=== PATIENT | female | born 1970 | race Caucasian/White ===

== ENCOUNTER 2023-03-12 19:16 | Inpatient (IN) | payer OTHER ==
[~2023-03-12] VITALS: Ht 152.4 cm; Wt 117.9 kg
[~2023-03-12 19:16] MED LIST: ARMOUR THYROID60 MG; [UNRECOGNIZED DRUG - OTHER]
[2023-03-12 20:31] LABS: HEMATOCRIT 43.3 % (36.0-45.00); HEMOGLOBIN 13.7 g/dL (12.0-15.00); MEAN CELL VOLUME 84.2 fL (80.00-100.00); MEAN CORPUSCULAR HEMOGLOBIN 26.8 pg (27.00-32.0); MEAN CORPUSCULAR HGB CONC 31.8 g/dl (32.0-36.0); PLATELET COUNT 313 K/uL (150-450); RED BLOOD COUNT 5.14 M/uL (4.00-6.00); RED CELL DISTRIBUTION WIDTH 16.3 % (11.5-14.5)
[2023-03-12 20:33] LABS: PH,URINE 5.5 (5.0-8.0); URINE APPEARANCE Clear; URINE BILIRRUBIN Negative (NEGATIVE); URINE BLOOD Negative; URINE COLOR Yellow; URINE GLUCOSE Negative (NEGATIVE); URINE LEUKOCYTE Negative; URINE NITRATE Negative; URINE PROTEIN Negative (NEGATIVE); URINE UROBILINOGEN 0.2 E.U./dl
[2023-03-12 20:34] LABS: URINE BACTERIA 505.2 uL (0.0-1933); URINE EPITHELIAL CELLS 5.9 uL (0.0-38.8); URINE RBC 2.6 uL (0.0-20.8); URINE WBC 6.8 uL (0.0-23.2)
[2023-03-12 20:52] LABS: INR 1.12; PARTIAL THROMBOPLASTIN TIME 25.7 SECONDS (22.0-34.0); PROTHROMBIN TIME 11.7 SECONDS (9.0-11.5)
[2023-03-12 21:08] LABS: TSH 1.27 uIU/mL (0.358-3.74)
[2023-03-12 21:21] LABS: ALBUMIN 4.1 gm/dL (3.4-5.0); BILIRUBIN TOTAL 0.91 mg/dL (0.3-1.2); CALCIUM 8.8 mg/dL (8.5-10.1); CREATININE SERUM 1.1 mg/dL (0.55-1.02); GFR 52.16; POTASSIUM 3.37 mEq/L (3.5-5.1); TOTAL PROTEIN 8.1 gm/dL (6.4-8.2)
[2023-03-12 23:08] LABS: ABG PO2 68.5 mmHg (80-100); ABG pCO2 30.3 mmHg (35-45); BASE EXCESS -1.9 mmol/l; SaO2 94.3 %
[2023-03-12 23:09] LABS: BICARBONATE 20.8 mmol/l (23-25); Tco2 21.7 mmol/l; allen test SATISFACTORY; o2 36 %; puncture site RADIAL RIGHT
[2023-03-14 10:31] LABS: HEMATOCRIT 38.4 % (36.0-45.00); HEMOGLOBIN 13.1 g/dL (12.0-15.00); MEAN CELL VOLUME 82.2 fL (80.00-100.00); MEAN CORPUSCULAR HGB CONC 34.1 g/dl (32.0-36.0); PLATELET COUNT 266 K/uL (150-450); RED BLOOD COUNT 4.67 M/uL (4.00-6.00); RED CELL DISTRIBUTION WIDTH 16.3 % (11.5-14.5)
[2023-03-14 10:41] LABS: ABG PH 7.458 (7.35-7.45); ABG PO2 78.1 mmHg (80-100); ABG pCO2 39.2 mmHg (35-45); BASE EXCESS 3.2 mmol/l; BICARBONATE 27.1 mmol/l (23-25); SaO2 96.2 %; Tco2 28.3 mmol/l
[2023-03-14 10:42] LABS: allen test SATISFACTORY; o2 21 %; puncture site RADIAL LEFT
[2023-03-14 10:54] LABS: ALBUMIN 3.9 gm/dL (3.4-5.0); CALCIUM 8.6 mg/dL (8.5-10.1); CREATININE SERUM 0.88 mg/dL (0.55-1.02); GFR 67.22; MAGNESIUM 2.2 mg/dL (1.8-2.4); PHOSPHOROUS 3.2 mg/dL (2.5-4.9); POTASSIUM 3.35 mEq/L (3.5-5.1)
[2023-03-14 10:58] LABS: INR 1.11; PROTHROMBIN TIME 11.6 SECONDS (9.0-11.5)
[2023-03-14 12:47] LABS: D DIMER 1.07 MG/L; PARTIAL THROMBOPLASTIN TIME 30.8 SECONDS (22.0-34.0)
[2023-03-14 14:50] LABS: ABG PH 7.425 (7.35-7.45); ABG pCO2 41.8 mmHg (35-45); BASE EXCESS 2.2 mmol/l; BICARBONATE 26.8 mmol/l (23-25); SaO2 99.4 %; Tco2 28.1 mmol/l
[2023-03-14 14:51] LABS: o2 50 %
[2023-03-14 14:54] LABS: allen test SATISFACTORY; puncture site RADIAL LEFT
[2023-03-15 08:42] LABS: ABG PH 7.427 (7.35-7.45); ABG PO2 100.9 mmHg (80-100); ABG pCO2 43.4 mmHg (35-45)
[2023-03-15 08:43] LABS: BASE EXCESS 3.1 mmol/l; BICARBONATE 27.9 mmol/l (23-25); Tco2 29.3 mmol/l; allen test SATISFACTORY; o2 50 %; puncture site RADIAL LEFT
[2023-03-21 11:30] LABS: HEMOGLOBIN 14.2 g/dL (12.0-15.00); MEAN CELL VOLUME 82.3 fL (80.00-100.00); MEAN CORPUSCULAR HEMOGLOBIN 27.9 pg (27.00-32.0); MEAN CORPUSCULAR HGB CONC 33.9 g/dl (32.0-36.0); PLATELET COUNT 223 K/uL (150-450); RED CELL DISTRIBUTION WIDTH 15.8 % (11.5-14.5)
[2023-03-21 11:33] LABS: ABG PH 7.463 (7.35-7.45); ABG PO2 124.6 mmHg (80-100); ABG pCO2 36.6 mmHg (35-45); BASE EXCESS 2.1 mmol/l; BICARBONATE 25.7 mmol/l (23-25)
[2023-03-21 11:34] LABS: Tco2 26.8 mmol/l
[2023-03-21 11:35] LABS: allen test SATISFACTORY; o2 40 %; puncture site RADIAL LEFT
[2023-03-21 11:49] LABS: CALCIUM 9.3 mg/dL (8.5-10.1); POTASSIUM 3.38 mEq/L (3.5-5.1)
[2023-03-23 09:15] LABS: ABG PO2 66.3 mmHg (80-100); ABG pCO2 46.3 mmHg (35-45); BASE EXCESS 6.4 mmol/l; BICARBONATE 31.5 mmol/l (23-25); SaO2 94.1 %; Tco2 32.9 mmol/l; allen test SATISFACTORY; o2 21 %; puncture site RADIAL RIGHT
[2023-03-25 05:11] LABS: HEMATOCRIT 40.3 % (36.0-45.00); HEMOGLOBIN 13.1 g/dL (12.0-15.00); MEAN CELL VOLUME 82.5 fL (80.00-100.00); MEAN CORPUSCULAR HEMOGLOBIN 26.9 pg (27.00-32.0); MEAN CORPUSCULAR HGB CONC 32.6 g/dl (32.0-36.0); PLATELET COUNT 246 K/uL (150-450); RED BLOOD COUNT 4.88 M/uL (4.00-6.00); RED CELL DISTRIBUTION WIDTH 15.2 % (11.5-14.5)
[2023-03-25 05:42] LABS: ALBUMIN 3.1 gm/dL (3.4-5.0); BILIRUBIN TOTAL 0.84 mg/dL (0.3-1.2); CALCIUM 8.7 mg/dL (8.5-10.1); CREATININE SERUM 0.72 mg/dL (0.55-1.02); GFR 84.73; GLOBULINA 3.2 G/DL (2.4-3.5); POTASSIUM 3.96 mEq/L (3.5-5.1); TOTAL PROTEIN 6.3 gm/dL (6.4-8.2)
[2023-04-02 14:25] LABS: HEMATOCRIT 29.1 % (36.0-45.00); MEAN CELL VOLUME 87.2 fL (80.00-100.00); MEAN CORPUSCULAR HEMOGLOBIN 28.2 pg (27.00-32.0); MEAN CORPUSCULAR HGB CONC 32.3 g/dl (32.0-36.0); PLATELET COUNT 158 K/uL (150-450); RED BLOOD COUNT 3.33 M/uL (4.00-6.00); RED CELL DISTRIBUTION WIDTH 15.9 % (11.5-14.5)
[2023-04-02 15:00] LABS: HEMOGLOBIN 9.4 g/dL (12.0-15.00)
[2023-04-02 15:15] LABS: ALBUMIN 1.6 gm/dL (3.4-5.0); ALKALINE PHOSPHATASE 39 U/L (50-136); BILIRUBIN TOTAL 0.12 mg/dL (0.3-1.2); BLOOD UREA NITROGEN 9 mg/dL (7-18); BUN CREA RATIO 29 (7.0-25.0); CARBON DIOXIDE 24 mEq/L (21-32); CREATININE SERUM 0.31 mg/dL (0.55-1.02); GFR 224.07; GLOBULINA 2.2 G/DL (2.4-3.5); GLUCOSE FASTING 194 mg/dL (65-100); OSMOLALITY SERUM 296 MOSM/KG (275-295); SODIUM 147 mmol/L (136-145); TOTAL PROTEIN 3.8 gm/dL (6.4-8.2)
[2023-04-02 16:01] LABS: ANION GAP 7 (10.0-20.0)
[2023-04-02 16:03] LABS: POTASSIUM 2.63 mEq/L (3.5-5.1)
[2023-04-02 16:05] LABS: CHLORIDE 119 mmol/L (98-107)
[2023-04-02 16:06] LABS: CALCIUM 5.6 mg/dL (8.5-10.1)
[2023-04-02 17:25] LABS: CALCIUM 8.5 mg/dL (8.5-10.1); CREATININE SERUM 0.74 mg/dL (0.55-1.02); GFR 82.09; POTASSIUM 4.32 mEq/L (3.5-5.1)
== END 2023-04-02 18:16 | disposition home or self-care (01) | DRG 291 ==
LOC: ER 19:16 → ICU-2 21:51 → ICU 21:51 → MEDJ 03-23 02:52
PROVIDERS: General Practice; Internal Medicine; Internal Medicine Critical Care Medicine; ADMIT Internal Medicine; ATTEND Internal Medicine
PROC: B246ZZZ Ultrasonography of Right and Left Heart (ICD-10-PCS; principal; 2023-03-12)
PROC: 3E0F7GC Introduction of Other Therapeutic Substance into Respiratory Tract, Via Natural or Artificial Opening (ICD-10-PCS; 2023-03-12)
PROC: 5A0935A Assistance with Respiratory Ventilation, Less than 24 Consecutive Hours, High Flow/Velocity Cannula (ICD-10-PCS; 2023-03-12)
PROC: BW28ZZZ Computerized Tomography (CT Scan) of Head (ICD-10-PCS; 2023-03-14)
PROC: 5A09457 Assistance with Respiratory Ventilation, 24-96 Consecutive Hours, Continuous Positive Airway Pressure (ICD-10-PCS; 2023-03-14)
PROC: BW28ZZZ Computerized Tomography (CT Scan) of Head (ICD-10-PCS; 2023-03-16)
PROC: 02HV33Z Insertion of Infusion Device into Superior Vena Cava, Percutaneous Approach (ICD-10-PCS; 2023-03-17)
PROC: BW28ZZZ Computerized Tomography (CT Scan) of Head (ICD-10-PCS; 2023-03-20)
PROC: 4A12X4Z Monitoring of Cardiac Electrical Activity, External Approach (ICD-10-PCS; 2023-03-23)
PROC: B246ZZZ Ultrasonography of Right and Left Heart (ICD-10-PCS; 2023-03-24)
DX: I11.0 Hypertensive heart disease with heart failure (principal); I50.23 Acute on chronic systolic (congestive) heart failure; I63.512 Cerebral infarction due to unspecified occlusion or stenosis of left middle cerebral artery; I48.19 Other persistent atrial fibrillation; Z68.41 Body mass index [BMI] 40.0-44.9, adult; G81.91 Hemiplegia, unspecified affecting right dominant side; E87.6 Hypokalemia; E03.8 Other specified hypothyroidism; R60.0 Localized edema; I27.20 Pulmonary hypertension, unspecified; E66.01 Morbid (severe) obesity due to excess calories